=== PATIENT | female | born 1955 | race Caucasian/White ===

== ENCOUNTER 2019-11-08 16:15 | Inpatient (IN) | payer SELFPAY ==
[~2019-11-08] VITALS: Ht 149.9 cm; Wt 50.4 kg
[2019-11-08] MEDS ORDERED: METOPROLOL TARTRATE 5MG/5ML VIAL IV ONE (17:15)
[2019-11-08] MEDS ORDERED: METOPROLOL TARTRATE 25MG TABLET PO ONE (17:15)
[2019-11-08 17:33] LABS: BASOPHILS % 0.3 % (0.0-2.0); EOSINOPHILS % 1.9 % (0.0-5.0); HEMATOCRIT. 37.8 % (36.0-48.0); HEMOGLOBIN. 12.9 g/dL (12.0-16.0); LYMPHOCYTES % 42.4 % (20.0-50.0); MEAN CORPUSCULAR HEMOGLOBIN 29.2 pg (28.0-32.0); MEAN CORPUSCULAR VOLUME 85.3 fL (81.0-99.0); MEAN PLATELET VOLUME 8.2 fl (7.4-10.4); MONOCYTES % 10.4 % (2.0-8.0); PLATELET 267 x1000/uL (130-400); RED BLOOD CELL COUNT 4.43 mill/uL (4.2-5.4); RED CELL DISTRIBUTION WIDTH 12.9 % (11.6-14.6)
[2019-11-08 17:36] LABS: CHLORIDE 109 mEq/L (98-107)
[2019-11-08] MEDS ORDERED: ENOXAPARIN 60MG/0.6ML SYR SUBCUT ONE (17:45)
[2019-11-08] MEDS ORDERED: GUAIFENESIN 200MG/10ML SUGAR FREE UDC PO PRN (21:45)
[2019-11-08] MEDS ORDERED: DOCUSATE SODIUM 100MG CAPSULE PO PRN (21:45)
[2019-11-08 21:58] LABS: INR 0.9
[2019-11-08 22:57] LABS: *AMPHETAMINES SCREEN URINE NEGATIVE (NEGATIVE)
[2019-11-08 22:58] LABS: *BARBITURATES SCREEN URINE NEGATIVE (NEGATIVE); *BENZODIAZEPINES SCREEN URINE NEGATIVE (NEGATIVE); *COCAINE SCREEN URINE NEGATIVE (NEGATIVE); CANNABINOID URINE SCREEN NEGATIVE (NEGATIVE); METHADONE URINE SCREEN NEGATIVE (NEGATIVE); OPIATES URINE SCREEN NEGATIVE (NEGATIVE); PHENCYCLIDINE URINE SCREEN NEGATIVE (NEGATIVE)
[2019-11-09] VITALS (11 sets, daily range): BP systolic 92–130; BP diastolic 34–96
[2019-11-09] MEDS ORDERED: PNEUMOCOCCAL 23-VAL P-SAC VAC 0.5 ML IM ONE (08:00)
[2019-11-09] MEDS: METOPROLOL TARTRATE 25MG TABLET PO SCH ×2 (08:26→21:12)
[2019-11-09 11:16] LABS: T4 FREE 4.38 ng/dL (0.76-1.46)
[2019-11-09] MEDS ORDERED: METHIMAZOLE 5MG TABLET PO SCH (14:00)
[2019-11-09] MEDS: METHIMAZOLE 5MG TABLET PO SCH ×2 (16:20→21:12)
[2019-11-09 16:53] LABS: CHLORIDE 110 mEq/L (98-107)
[2019-11-09 17:18] LABS: BASOPHILS % 1.3 % (0.0-2.0); EOSINOPHILS % 1.5 % (0.0-5.0); HEMATOCRIT. 38.1 % (36.0-48.0); HEMOGLOBIN. 12.9 g/dL (12.0-16.0); LYMPHOCYTES % 32.5 % (20.0-50.0); MEAN CORPUSCULAR HEMOGLOBIN 29.1 pg (28.0-32.0); MEAN CORPUSCULAR VOLUME 86.1 fL (81.0-99.0); MEAN PLATELET VOLUME 9.5 fl (7.4-10.4); MONOCYTES % 7.3 % (2.0-8.0); NEUTROPHILS % 57.4 % (40.0-76.0); PLATELET 253 x1000/uL (130-400); RED BLOOD CELL COUNT 4.43 mill/uL (4.2-5.4); RED CELL DISTRIBUTION WIDTH 13.1 % (11.6-14.6)
[2019-11-10] VITALS (8 sets, daily range): BP systolic 91–136; BP diastolic 25–71
[2019-11-10] MEDS: METHIMAZOLE 5MG TABLET PO SCH (06:08)
[2019-11-10] MEDS ORDERED: SODIUM CHLORIDE 0.9% 500 ML IV SCH (08:30)
[2019-11-10] MEDS ORDERED: SODIUM CHLORIDE 0.9% 500 ML IV ONE (08:30)
[2019-11-10] MEDS: METOPROLOL TARTRATE 25MG TABLET PO SCH (08:42)
[2019-11-10] MEDS ORDERED: TAP5 PO (12:15)
[2019-11-10] MEDS ORDERED: METO25TA6 PO (12:15)
== END 2019-11-10 14:40 | disposition home or self-care (01) | DRG 201 ==
LOC: ER 16:15 → 3WST 17:35 → ENRESERV 11-09 01:29
PROVIDERS: ADMIT Family Medicine; ATTEND Family Medicine
DX: I48.91 Unspecified atrial fibrillation (principal); E87.8 Other disorders of electrolyte and fluid balance, not elsewhere classified; E44.1 Mild protein-calorie malnutrition; B35.1 Tinea unguium; D72.819 Decreased white blood cell count, unspecified; E05.90 Thyrotoxicosis, unspecified without thyrotoxic crisis or storm; R73.9 Hyperglycemia, unspecified; F32.9 Major depressive disorder, single episode, unspecified; L80 Vitiligo; I10 Essential (primary) hypertension; E21.3 Hyperparathyroidism, unspecified; Z80.8 Family history of malignant neoplasm of other organs or systems; Z68.22 Body mass index [BMI] 22.0-22.9, adult; Z83.79 Family history of other diseases of the digestive system; Z98.891 History of uterine scar from previous surgery
CPT/HCPCS: 36415; 71045; 80053; 80061; 80305; 83036; 83520; 83880; 84439; 84443; 84481; 84484; 85025; 93005; 93306; 96374; 99291; J1650; J3490